=== PATIENT | male | born 1930 | race Caucasian/White ===

== ENCOUNTER 2020-09-26 11:41 | Emergency (ER) | payer MEDICARE, OTHER ==
[2020-09-26 12:19] LABS: BASOPHIL 0.4 % (0-2); EOSINOPHIL 1.8 % (0-7); HCT 43.6 % (42.0-52.0); HGB 13.7 g/dl (13.2-18.0); LYMPHOCYTE 15.9 % (15-48); MCH 29.7 pg (25.0-31.0); MCHC 31.4 g/dL (32.0-36.0); MCV 94.6 fL (78.0-100.0); MONOCYTE 4.7 % (0-12); MPV 11.2 fL (6.0-9.5); NEUTROPHIL 76.6 % (41-80); NRBC 0; PLT 213 K/uL (150-400); RBC 4.61 M/uL (4.70-6.00); WBC 12.4 K/uL (4.0-10.5)
[2020-09-26 12:24] LABS: INR 1.03 (0.9-1.2); PROTHROMBIN TIME 12.9 SECONDS (11.8-13.4); PTT 26.9 SECONDS (24.4-34.7)
[2020-09-26 12:43] LABS: ALBUMIN 4.3 g/dL (3.4-5.0); BILIRUBIN - TOTAL 0.4 mg/dL (0.2-1.0); BUN/CREAT RATIO (CALC) 14.7 RATIO; CREATININE 2.85 mg/dL (0.67-1.17); GLOBULIN (CALCULATION) 3.4 g/dL; MAGNESIUM 2.2 mg/dL (1.8-2.4); POTASSIUM 4.5 mmol/L (3.5-5.1); TOTAL PROTEIN 7.7 g/dL (6.4-8.2)
[2020-09-26 13:02] LABS: PRO-BNP 975 pg/mL (<450)
== END 2020-09-26 15:42 | disposition home or self-care (01) ==
LOC: FER 11:41
PROVIDERS: Emergency Medicine
DX: R00.2 Palpitations (principal); I45.19 Other right bundle-branch block; I12.9 Hypertensive chronic kidney disease with stage 1 through stage 4 chronic kidney disease, or unspecified chronic kidney disease; N18.9 Chronic kidney disease, unspecified; Z79.899 Other long term (current) drug therapy
CPT/HCPCS: 36415; 71045; 80053; 82553; 83735; 83874; 83880; 84443; 84484; 85025; 85610; 85730; 93005